=== PATIENT | male | born 1970 | race Caucasian/White ===

== ENCOUNTER 2022-03-09 20:20 | Inpatient (IN) | payer MEDICARE, MEDICAID ==
[~2022-03-09] VITALS: Ht 172.7 cm; Wt 135.2 kg
[2022-03-09 20:21] VITALS: BP 142/80
[2022-03-09 20:30] VITALS: BP 142/80
[2022-03-09] MEDS: BACLOFEN 10MG TABLET PO SCH (23:54)
[2022-03-09] MEDS: GABAPENTIN 400MG CAPSULE PO SCH (23:56)
[2022-03-10] MEDS ORDERED: BACL-141 GT (02:20)
[2022-03-10] MEDS ORDERED: LIP40 PO (02:20)
[2022-03-10] MEDS ORDERED: NIFE90TA2 PO (02:20)
[2022-03-10] MEDS ORDERED: ASPI-1406 PO (02:20)
[2022-03-10] MEDS ORDERED: CLOP-31 PO (02:20)
[2022-03-10] MEDS ORDERED: COR6 PO (02:20)
[2022-03-10] MEDS ORDERED: GABA800T PO (02:20)
[2022-03-10] MEDS ORDERED: BACLOFEN 10MG TABLET PO SCH (06:00)
[2022-03-10] MEDS ORDERED: GABAPENTIN 400MG CAPSULE PO SCH (06:00)
[2022-03-10] MEDS: BACLOFEN 10MG TABLET PO SCH ×3 (06:58→21:02)
[2022-03-10] MEDS: GABAPENTIN 400MG CAPSULE PO SCH ×3 (06:58→21:23)
[2022-03-10 07:40] LABS: BASOPHILS % 0.3 % (0.0-2.0); CHLORIDE 108 mEq/L (98-107); EOSINOPHILS % 1.9 % (0.0-5.0); HEMATOCRIT. 43.3 % (42.0-52.0); HEMOGLOBIN. 14.8 g/dL (14.0-18.0); LYMPHOCYTES % 23.7 % (20.0-50.0); MEAN CORPUSCULAR VOLUME 84.6 fL (80.0-94.0); MEAN PLATELET VOLUME 9.4 fl (7.4-10.4); MONOCYTES % 6.5 % (2.0-8.0); NEUTROPHILS % 67.6 % (40.0-76.0); PLATELET 208 x1000/uL (130-400); RED BLOOD CELL COUNT 5.12 mill/uL (4.7-6.1); RED CELL DISTRIBUTION WIDTH 13.4 % (11.6-14.6)
[2022-03-10 08:56] VITALS: BP 130/79
[2022-03-10] MEDS: NIFEDIPINE XL 90MG TAB PO SCH (09:00)
[2022-03-10] MEDS: ASPIRIN 81MG EC TABLET PO SCH (09:37)
[2022-03-10] MEDS: CLOPIDOGREL 75MG TABLET PO SCH (09:37)
[2022-03-10] MEDS: CARVEDILOL 6.25 MG TABLET PO SCH ×2 (09:38→21:00)
[2022-03-10] MEDS ORDERED: LACTULOSE 20G/30ML UDC PO NR (10:30)
[2022-03-10] MEDS ORDERED: BISACODYL 5MG TABLET PO PRN (10:30)
[2022-03-10] MEDS: DOCUSATE SODIUM 100MG CAPSULE PO SCH ×2 (12:08→17:00)
[2022-03-10] MEDS: POTASSIUM CHLORIDE 20MEQ TABLET SR PO SCH (12:08)
[2022-03-10 20:00] VITALS: BP 176/93
[2022-03-10 21:00] VITALS: BP 132/84
[2022-03-10] MEDS ORDERED: LACTULOSE 20G/30ML UDC PO PRN (21:00)
[2022-03-10] MEDS: ATORVASTATIN CALCIUM 40MG TABLET PO SCH (21:02)
[2022-03-11 06:00] VITALS: BP 118/73
[2022-03-11] MEDS: GABAPENTIN 400MG CAPSULE PO SCH ×3 (06:00→21:42)
[2022-03-11] MEDS: BACLOFEN 10MG TABLET PO SCH ×3 (06:17→21:42)
[2022-03-11 08:00] VITALS: BP 132/73
[2022-03-11] MEDS: CARVEDILOL 6.25 MG TABLET PO SCH ×2 (08:29→20:52)
[2022-03-11] MEDS: NIFEDIPINE XL 90MG TAB PO SCH (08:30)
[2022-03-11] MEDS ORDERED: GABAPENTIN 400MG CAPSULE PO NR (08:49)
[2022-03-11] MEDS: DOCUSATE SODIUM 100MG CAPSULE PO SCH ×2 (09:09→17:00)
[2022-03-11] MEDS: LISINOPRIL 10MG TABLET PO SCH (09:09)
[2022-03-11] MEDS: POTASSIUM CHLORIDE 20MEQ TABLET SR PO SCH (09:09)
[2022-03-11] MEDS: CLOPIDOGREL 75MG TABLET PO SCH (09:09)
[2022-03-11] MEDS: ASPIRIN 81MG EC TABLET PO SCH (09:09)
[2022-03-11 20:00] VITALS: BP 132/70
[2022-03-11] MEDS: ATORVASTATIN CALCIUM 40MG TABLET PO SCH (20:51)
[2022-03-12] MEDS: BACLOFEN 10MG TABLET PO SCH ×3 (05:46→22:03)
[2022-03-12] MEDS: GABAPENTIN 400MG CAPSULE PO SCH ×3 (05:46→22:03)
[2022-03-12 08:00] VITALS: BP 101/49
[2022-03-12] MEDS: CARVEDILOL 6.25 MG TABLET PO SCH (08:22)
[2022-03-12] MEDS: NIFEDIPINE XL 90MG TAB PO SCH (08:23)
[2022-03-12] MEDS: POTASSIUM CHLORIDE 20MEQ TABLET SR PO SCH (09:05)
[2022-03-12] MEDS: DOCUSATE SODIUM 100MG CAPSULE PO SCH ×2 (09:05→16:02)
[2022-03-12] MEDS: LISINOPRIL 10MG TABLET PO SCH (09:05)
[2022-03-12] MEDS: CLOPIDOGREL 75MG TABLET PO SCH (09:05)
[2022-03-12] MEDS: ASPIRIN 81MG EC TABLET PO SCH (09:05)
[2022-03-12 20:00] VITALS: BP 128/81
[2022-03-12] MEDS: CARVEDILOL 3.125 MG TABLET PO SCH (21:00)
[2022-03-12] MEDS: ATORVASTATIN CALCIUM 40MG TABLET PO SCH (22:04)
[2022-03-13] MEDS: BACLOFEN 10MG TABLET PO SCH ×3 (06:28→21:22)
[2022-03-13] MEDS: GABAPENTIN 400MG CAPSULE PO SCH ×3 (06:28→21:22)
[2022-03-13 08:00] VITALS: BP 145/73
[2022-03-13] MEDS: POTASSIUM CHLORIDE 20MEQ TABLET SR PO SCH (08:23)
[2022-03-13] MEDS: NIFEDIPINE XL 90MG TAB PO SCH (08:27)
[2022-03-13] MEDS: CLOPIDOGREL 75MG TABLET PO SCH (08:27)
[2022-03-13] MEDS: ASPIRIN 81MG EC TABLET PO SCH (08:27)
[2022-03-13] MEDS: CARVEDILOL 3.125 MG TABLET PO SCH ×2 (08:27→21:22)
[2022-03-13] MEDS: DOCUSATE SODIUM 100MG CAPSULE PO SCH ×2 (08:27→17:00)
[2022-03-13] MEDS: LISINOPRIL 10MG TABLET PO SCH (08:28)
[2022-03-13] MEDS: MORPHINE SULFATE 2 MG/ML CPJ (NOT FOR IM USE) IV PRN (15:20)
[2022-03-13 20:00] VITALS: BP 145/78
[2022-03-13] MEDS: ATORVASTATIN CALCIUM 40MG TABLET PO SCH (21:21)
[2022-03-14] MEDS: BACLOFEN 10MG TABLET PO SCH ×3 (05:23→21:02)
[2022-03-14] MEDS: GABAPENTIN 400MG CAPSULE PO SCH ×3 (05:24→21:02)
[2022-03-14 08:19] VITALS: BP 115/64
[2022-03-14] MEDS: DOCUSATE SODIUM 100MG CAPSULE PO SCH ×2 (09:00→17:00)
[2022-03-14] MEDS: ASPIRIN 81MG EC TABLET PO SCH (09:42)
[2022-03-14] MEDS: CLOPIDOGREL 75MG TABLET PO SCH (09:42)
[2022-03-14] MEDS: POTASSIUM CHLORIDE 20MEQ TABLET SR PO SCH (09:42)
[2022-03-14] MEDS: LISINOPRIL 10MG TABLET PO SCH (09:43)
[2022-03-14] MEDS: NIFEDIPINE XL 90MG TAB PO SCH (09:44)
[2022-03-14] MEDS: CARVEDILOL 3.125 MG TABLET PO SCH ×2 (09:45→20:16)
[2022-03-14] MEDS ORDERED: NALOXONE HCL 0.4MG/ML VIAL IV PRN (10:30)
[2022-03-14 20:00] VITALS: BP 121/75
[2022-03-14] MEDS: ATORVASTATIN CALCIUM 40MG TABLET PO SCH (20:16)
[2022-03-15] MEDS: GABAPENTIN 400MG CAPSULE PO SCH ×3 (06:04→21:29)
[2022-03-15] MEDS: BACLOFEN 10MG TABLET PO SCH ×3 (06:04→21:28)
[2022-03-15 08:00] VITALS: BP 114/65
[2022-03-15] MEDS: NIFEDIPINE XL 90MG TAB PO SCH (09:00)
[2022-03-15] MEDS: ASPIRIN 81MG EC TABLET PO SCH (10:51)
[2022-03-15] MEDS: LISINOPRIL 10MG TABLET PO SCH (10:51)
[2022-03-15] MEDS: POTASSIUM CHLORIDE 20MEQ TABLET SR PO SCH (10:51)
[2022-03-15] MEDS: CLOPIDOGREL 75MG TABLET PO SCH (10:51)
[2022-03-15] MEDS: DOCUSATE SODIUM 100MG CAPSULE PO SCH ×2 (10:52→17:00)
[2022-03-15] MEDS: CARVEDILOL 3.125 MG TABLET PO SCH ×2 (10:52→21:29)
[2022-03-15] MEDS: MORPHINE SULFATE 2 MG/ML CPJ (NOT FOR IM USE) IV PRN (17:08)
[2022-03-15 20:00] VITALS: BP 125/65
[2022-03-15] MEDS: ATORVASTATIN CALCIUM 40MG TABLET PO SCH (21:29)
[2022-03-16] MEDS: BACLOFEN 10MG TABLET PO SCH ×3 (05:16→21:20)
[2022-03-16] MEDS: GABAPENTIN 400MG CAPSULE PO SCH ×3 (05:17→21:20)
[2022-03-16 08:00] VITALS: BP 107/63
[2022-03-16] MEDS: NIFEDIPINE XL 90MG TAB PO SCH ×2 (09:00→09:56)
[2022-03-16] MEDS: LISINOPRIL 10MG TABLET PO SCH ×2 (09:00→09:57)
[2022-03-16] MEDS: CARVEDILOL 3.125 MG TABLET PO SCH ×4 (09:00→21:20)
[2022-03-16] MEDS: POTASSIUM CHLORIDE 20MEQ TABLET SR PO SCH (09:57)
[2022-03-16] MEDS: CLOPIDOGREL 75MG TABLET PO SCH (09:57)
[2022-03-16] MEDS: ASPIRIN 81MG EC TABLET PO SCH (09:57)
[2022-03-16] MEDS: DOCUSATE SODIUM 100MG CAPSULE PO SCH ×2 (09:57→16:14)
[2022-03-16] MEDS: ALPRAZOLAM 0.5 MG TABLET PO PRN (12:59)
[2022-03-16 20:34] VITALS: BP 119/61
[2022-03-16] MEDS: ATORVASTATIN CALCIUM 40MG TABLET PO SCH (21:21)
[2022-03-17] MEDS: GABAPENTIN 400MG CAPSULE PO SCH ×3 (05:48→21:16)
[2022-03-17] MEDS: BACLOFEN 10MG TABLET PO SCH ×3 (05:48→21:16)
[2022-03-17 07:52] VITALS: BP 124/79
[2022-03-17] MEDS: ASPIRIN 81MG EC TABLET PO SCH (09:44)
[2022-03-17] MEDS: ALPRAZOLAM 0.5 MG TABLET PO PRN ×2 (09:44→12:53)
[2022-03-17] MEDS: CARVEDILOL 3.125 MG TABLET PO SCH ×2 (09:44→21:00)
[2022-03-17] MEDS: DOCUSATE SODIUM 100MG CAPSULE PO SCH ×2 (09:44→16:35)
[2022-03-17] MEDS: POTASSIUM CHLORIDE 20MEQ TABLET SR PO SCH (09:44)
[2022-03-17] MEDS: NIFEDIPINE XL 90MG TAB PO SCH (09:44)
[2022-03-17] MEDS: CLOPIDOGREL 75MG TABLET PO SCH (09:44)
[2022-03-17] MEDS: LISINOPRIL 10MG TABLET PO SCH (09:45)
[2022-03-17 20:00] VITALS: BP 127/65
[2022-03-17] MEDS: ATORVASTATIN CALCIUM 40MG TABLET PO SCH (21:16)
[2022-03-18] MEDS: GABAPENTIN 400MG CAPSULE PO SCH ×3 (05:20→21:06)
[2022-03-18] MEDS: BACLOFEN 10MG TABLET PO SCH ×3 (05:20→21:06)
[2022-03-18 05:34] LABS: BASOPHILS % 0.6 % (0.0-2.0); HEMATOCRIT. 40.5 % (42.0-52.0); HEMOGLOBIN. 13.5 g/dL (14.0-18.0); LYMPHOCYTES % 30.2 % (20.0-50.0); MEAN CORPUSCULAR HEMOGLOBIN 28.8 pg (28.0-32.0); MEAN CORPUSCULAR VOLUME 86.2 fL (80.0-94.0); MONOCYTES % 6.9 % (2.0-8.0); NEUTROPHILS % 59.3 % (40.0-76.0); PLATELET 185 x1000/uL (130-400); RED CELL DISTRIBUTION WIDTH 13.9 % (11.6-14.6)
[2022-03-18 05:43] LABS: CHLORIDE 108 mEq/L (98-107)
[2022-03-18 06:24] LABS: FOLIC ACID (FOLATE) SERUM 18.3 ng/mL (>5.38)
[2022-03-18 08:00] VITALS: BP 140/65
[2022-03-18] MEDS: CARVEDILOL 3.125 MG TABLET PO SCH ×2 (09:00→21:00)
[2022-03-18] MEDS: POTASSIUM CHLORIDE 20MEQ TABLET SR PO SCH (09:08)
[2022-03-18] MEDS: CLOPIDOGREL 75MG TABLET PO SCH (09:08)
[2022-03-18] MEDS: DOCUSATE SODIUM 100MG CAPSULE PO SCH ×2 (09:08→18:21)
[2022-03-18] MEDS: NIFEDIPINE XL 90MG TAB PO SCH (09:08)
[2022-03-18] MEDS: ASPIRIN 81MG EC TABLET PO SCH (09:08)
[2022-03-18] MEDS: LISINOPRIL 10MG TABLET PO SCH (09:08)
[2022-03-18] MEDS: CYANOCOBALAMIN 1000MCG/ML VIAL IM SCH (13:09)
[2022-03-18 20:00] VITALS: BP 121/69
[2022-03-18] MEDS: ATORVASTATIN CALCIUM 40MG TABLET PO SCH (21:06)
[2022-03-19] MEDS: BACLOFEN 10MG TABLET PO SCH ×3 (05:29→21:47)
[2022-03-19] MEDS: GABAPENTIN 400MG CAPSULE PO SCH ×3 (05:29→21:47)
[2022-03-19 08:00] VITALS: BP 125/70
[2022-03-19] MEDS: POTASSIUM CHLORIDE 20MEQ TABLET SR PO SCH (09:52)
[2022-03-19] MEDS: LISINOPRIL 10MG TABLET PO SCH (09:52)
[2022-03-19] MEDS: NIFEDIPINE XL 90MG TAB PO SCH (09:52)
[2022-03-19] MEDS: CARVEDILOL 3.125 MG TABLET PO SCH ×2 (09:52→21:00)
[2022-03-19] MEDS: CLOPIDOGREL 75MG TABLET PO SCH (09:52)
[2022-03-19] MEDS: CYANOCOBALAMIN 1000MCG/ML VIAL IM SCH (09:52)
[2022-03-19] MEDS: ASPIRIN 81MG EC TABLET PO SCH (09:52)
[2022-03-19] MEDS: DOCUSATE SODIUM 100MG CAPSULE PO SCH ×2 (09:52→17:39)
[2022-03-19 20:00] VITALS: BP 133/73
[2022-03-19] MEDS: ATORVASTATIN CALCIUM 40MG TABLET PO SCH (21:47)
[2022-03-20] MEDS: BACLOFEN 10MG TABLET PO SCH ×3 (07:05→21:05)
[2022-03-20] MEDS: GABAPENTIN 400MG CAPSULE PO SCH ×3 (07:06→21:04)
[2022-03-20 08:00] VITALS: BP 133/73
[2022-03-20] MEDS: DOCUSATE SODIUM 100MG CAPSULE PO SCH ×2 (10:08→17:00)
[2022-03-20] MEDS: LISINOPRIL 10MG TABLET PO SCH (10:09)
[2022-03-20] MEDS: CLOPIDOGREL 75MG TABLET PO SCH (10:10)
[2022-03-20] MEDS: POTASSIUM CHLORIDE 20MEQ TABLET SR PO SCH (10:10)
[2022-03-20] MEDS: CARVEDILOL 3.125 MG TABLET PO SCH ×2 (10:10→21:05)
[2022-03-20] MEDS: ASPIRIN 81MG EC TABLET PO SCH (10:10)
[2022-03-20] MEDS: NIFEDIPINE XL 90MG TAB PO SCH (10:10)
[2022-03-20] MEDS: CYANOCOBALAMIN 1000MCG/ML VIAL IM SCH (10:11)
[2022-03-20 20:00] VITALS: BP 127/68
[2022-03-20] MEDS: ATORVASTATIN CALCIUM 40MG TABLET PO SCH (21:04)
[2022-03-21] MEDS: GABAPENTIN 400MG CAPSULE PO SCH ×3 (06:20→21:14)
[2022-03-21] MEDS: BACLOFEN 10MG TABLET PO SCH ×3 (06:20→21:14)
[2022-03-21 08:00] VITALS: BP 122/60
[2022-03-21] MEDS: CLOPIDOGREL 75MG TABLET PO SCH (09:18)
[2022-03-21] MEDS: ASPIRIN 81MG EC TABLET PO SCH (09:18)
[2022-03-21] MEDS: CYANOCOBALAMIN 1000MCG/ML VIAL IM SCH (09:18)
[2022-03-21] MEDS: POTASSIUM CHLORIDE 20MEQ TABLET SR PO SCH (09:18)
[2022-03-21] MEDS: DOCUSATE SODIUM 100MG CAPSULE PO SCH ×2 (09:18→17:00)
[2022-03-21] MEDS: NIFEDIPINE XL 90MG TAB PO SCH (09:23)
[2022-03-21] MEDS: CARVEDILOL 3.125 MG TABLET PO SCH ×2 (09:23→21:00)
[2022-03-21] MEDS: LISINOPRIL 10MG TABLET PO SCH (09:24)
[2022-03-21 20:00] VITALS: BP 127/65
[2022-03-21] MEDS: ATORVASTATIN CALCIUM 40MG TABLET PO SCH (21:14)
[2022-03-22] MEDS: BACLOFEN 10MG TABLET PO SCH ×3 (06:10→21:07)
[2022-03-22] MEDS: GABAPENTIN 400MG CAPSULE PO SCH ×3 (06:10→21:07)
[2022-03-22 08:00] VITALS: BP 120/74
[2022-03-22] MEDS: CYANOCOBALAMIN 1000MCG/ML VIAL IM SCH (09:13)
[2022-03-22] MEDS: POTASSIUM CHLORIDE 20MEQ TABLET SR PO SCH (09:14)
[2022-03-22] MEDS: CLOPIDOGREL 75MG TABLET PO SCH (09:14)
[2022-03-22] MEDS: CARVEDILOL 3.125 MG TABLET PO SCH ×2 (09:15→21:00)
[2022-03-22] MEDS: NIFEDIPINE XL 90MG TAB PO SCH (09:15)
[2022-03-22] MEDS: ASPIRIN 81MG EC TABLET PO SCH (09:15)
[2022-03-22] MEDS: DOCUSATE SODIUM 100MG CAPSULE PO SCH ×2 (09:16→17:00)
[2022-03-22] MEDS: LISINOPRIL 10MG TABLET PO SCH (09:16)
[2022-03-22 20:00] VITALS: BP 112/62
[2022-03-22] MEDS: ATORVASTATIN CALCIUM 40MG TABLET PO SCH (21:07)
[2022-03-23] MEDS: GABAPENTIN 400MG CAPSULE PO SCH ×3 (07:01→21:14)
[2022-03-23] MEDS: BACLOFEN 10MG TABLET PO SCH ×3 (07:04→21:13)
[2022-03-23 08:00] VITALS: BP 124/67
[2022-03-23] MEDS: POTASSIUM CHLORIDE 20MEQ TABLET SR PO SCH (08:36)
[2022-03-23] MEDS: NIFEDIPINE XL 90MG TAB PO SCH (08:37)
[2022-03-23] MEDS: CYANOCOBALAMIN 1000MCG/ML VIAL IM SCH (08:37)
[2022-03-23] MEDS: LISINOPRIL 10MG TABLET PO SCH (08:37)
[2022-03-23] MEDS: ASPIRIN 81MG EC TABLET PO SCH (08:37)
[2022-03-23] MEDS: DOCUSATE SODIUM 100MG CAPSULE PO SCH ×2 (08:37→16:53)
[2022-03-23] MEDS: CLOPIDOGREL 75MG TABLET PO SCH (08:37)
[2022-03-23] MEDS: CARVEDILOL 3.125 MG TABLET PO SCH ×2 (08:38→20:52)
[2022-03-23 17:06] LABS: 25-HYDROXY VITAMIN D3 20 ng/mL (.)
[2022-03-23 20:00] VITALS: BP 112/56
[2022-03-23] MEDS: ATORVASTATIN CALCIUM 40MG TABLET PO SCH (20:52)
[2022-03-24] MEDS: GABAPENTIN 400MG CAPSULE PO SCH ×3 (06:00→21:03)
[2022-03-24] MEDS: BACLOFEN 10MG TABLET PO SCH ×3 (06:00→21:03)
[2022-03-24 08:29] VITALS: BP 134/78
[2022-03-24] MEDS: POTASSIUM CHLORIDE 20MEQ TABLET SR PO SCH (09:51)
[2022-03-24] MEDS: CYANOCOBALAMIN 1000MCG/ML VIAL IM SCH (09:51)
[2022-03-24] MEDS: NIFEDIPINE XL 90MG TAB PO SCH (09:52)
[2022-03-24] MEDS: CLOPIDOGREL 75MG TABLET PO SCH (09:52)
[2022-03-24] MEDS: CARVEDILOL 3.125 MG TABLET PO SCH ×2 (09:53→21:04)
[2022-03-24] MEDS: DOCUSATE SODIUM 100MG CAPSULE PO SCH ×2 (09:53→17:00)
[2022-03-24] MEDS: LISINOPRIL 10MG TABLET PO SCH (09:53)
[2022-03-24] MEDS: ASPIRIN 81MG EC TABLET PO SCH (09:53)
[2022-03-24] MEDS ORDERED: MORPHINE SULFATE 2 MG/ML CPJ (NOT FOR IM USE) IV NR (16:15)
[2022-03-24] MEDS ORDERED: NALOXONE HCL 0.4MG/ML VIAL IV PRN (16:30)
[2022-03-24] MEDS: ERGOCALCIFEROL 50000UNITS CAPSULE PO SCH (17:00)
[2022-03-24 20:00] VITALS: BP 116/69
[2022-03-24] MEDS: ATORVASTATIN CALCIUM 40MG TABLET PO SCH (21:03)
[2022-03-25] MEDS: BACLOFEN 10MG TABLET PO SCH ×3 (05:25→21:23)
[2022-03-25] MEDS: GABAPENTIN 400MG CAPSULE PO SCH ×3 (05:26→21:23)
[2022-03-25 08:00] VITALS: BP 141/75
[2022-03-25] MEDS: CARVEDILOL 3.125 MG TABLET PO SCH ×2 (10:00→20:32)
[2022-03-25] MEDS: CLOPIDOGREL 75MG TABLET PO SCH (10:00)
[2022-03-25] MEDS: POTASSIUM CHLORIDE 20MEQ TABLET SR PO SCH (10:00)
[2022-03-25] MEDS: ASPIRIN 81MG EC TABLET PO SCH (10:00)
[2022-03-25] MEDS: NIFEDIPINE XL 90MG TAB PO SCH (10:00)
[2022-03-25] MEDS: LISINOPRIL 10MG TABLET PO SCH (10:01)
[2022-03-25] MEDS: ERGOCALCIFEROL 50000UNITS CAPSULE PO SCH (10:03)
[2022-03-25] MEDS: DOCUSATE SODIUM 100MG CAPSULE PO SCH ×2 (10:07→17:17)
[2022-03-25] MEDS: CEPHALEXIN 250MG CAPSULE PO SCH ×2 (17:17→21:00)
[2022-03-25] MEDS: NEO/POLYMYX B SULF/DEXAMETH OPHTH OINT 3.5GM RIGHTEYE SCH ×2 (17:17→21:00)
[2022-03-25 20:00] VITALS: BP 127/65
[2022-03-25] MEDS: ATORVASTATIN CALCIUM 40MG TABLET PO SCH (20:32)
[2022-03-26] MEDS: GABAPENTIN 400MG CAPSULE PO SCH ×2 (06:09→13:21)
[2022-03-26] MEDS: BACLOFEN 10MG TABLET PO SCH ×2 (06:09→13:21)
[2022-03-26 07:41] LABS: BASOPHILS % 0.7 % (0.0-2.0); HEMATOCRIT. 40.4 % (42.0-52.0); HEMOGLOBIN. 13.6 g/dL (14.0-18.0); LYMPHOCYTES % 25.5 % (20.0-50.0); MEAN CORPUSCULAR VOLUME 86.1 fL (80.0-94.0); MEAN PLATELET VOLUME 10.4 fl (7.4-10.4); MONOCYTES % 8.8 % (2.0-8.0); PLATELET 184 x1000/uL (130-400); RED BLOOD CELL COUNT 4.69 mill/uL (4.7-6.1); RED CELL DISTRIBUTION WIDTH 14.2 % (11.6-14.6)
[2022-03-26 08:00] VITALS: BP 119/60
[2022-03-26 08:38] LABS: CHLORIDE 107 mEq/L (98-107)
[2022-03-26] MEDS: ASPIRIN 81MG EC TABLET PO SCH (08:46)
[2022-03-26] MEDS: DOCUSATE SODIUM 100MG CAPSULE PO SCH (08:46)
[2022-03-26] MEDS: CEPHALEXIN 250MG CAPSULE PO SCH (08:47)
[2022-03-26] MEDS: POTASSIUM CHLORIDE 20MEQ TABLET SR PO SCH (08:47)
[2022-03-26] MEDS: CLOPIDOGREL 75MG TABLET PO SCH (08:47)
[2022-03-26] MEDS: NEO/POLYMYX B SULF/DEXAMETH OPHTH OINT 3.5GM RIGHTEYE SCH (08:48)
[2022-03-26] MEDS: NIFEDIPINE XL 90MG TAB PO SCH (08:48)
[2022-03-26] MEDS: CARVEDILOL 3.125 MG TABLET PO SCH (08:48)
[2022-03-26] MEDS: LISINOPRIL 10MG TABLET PO SCH (08:49)
[2022-03-26 13:59] VITALS: BP 139/77
== END 2022-03-26 16:10 | disposition home health service (06) | DRG 56 ==
LOC: OBSVTOIN 20:20
PROVIDERS: ADMIT Psychiatry & Neurology Neurology; ATTEND Hospitalist
DX: I69.351 Hemiplegia and hemiparesis following cerebral infarction affecting right dominant side (principal); I63.9 Cerebral infarction, unspecified; Z68.41 Body mass index [BMI] 40.0-44.9, adult; I10 Essential (primary) hypertension; E78.5 Hyperlipidemia, unspecified; E66.01 Morbid (severe) obesity due to excess calories; R47.1 Dysarthria and anarthria; Z90.49 Acquired absence of other specified parts of digestive tract; E87.6 Hypokalemia; F41.9 Anxiety disorder, unspecified; H00.016 Hordeolum externum left eye, unspecified eyelid; R29.810 Facial weakness; E55.9 Vitamin D deficiency, unspecified; G89.29 Other chronic pain; R26.89 Other abnormalities of gait and mobility; M62.838 Other muscle spasm; E53.8 Deficiency of other specified B group vitamins
CPT/HCPCS: 36415; 71045; 80048; 80053; 82306; 82607; 82746; 82962; 84443; 85025; 92523; 92610; 93880; 93970; 97110; 97112; 97116; 97150; 97162; 97166; 97530; 97535; A4565; J2270; J3420